=== PATIENT | female | born 2000 | race Caucasian/White ===

== ENCOUNTER → 2021-03-11 | Outpatient (CLI) | payer OTHER ==
[~2021-03-11] MED LIST: BENTYL 20MG TAB20 MG PO; IBUPROFEN400 MG PO; LEVAQUIN500 MG PO; LORTAB 7.5-3251 EACH PO; OMNICEF 300 MG300 MG PO; ONDANSETRON ODT4 MG SL; PERCOCET 5-3251 EACH PO; PHENERGAN 25 MG25 M1 PO; PROTONIX40 MG PO; ZOFRAN ODT 4 MG4 MG PO; ZOFRAN ODT 4 MG4 MG SL
== END ==
LOC: EMI 15:14
DX: E22.1 Hyperprolactinemia (principal)
CPT/HCPCS: 70553; A9577

== ENCOUNTER 2021-07-14 09:21 | Emergency (ER) | payer OTHER ==
[2021-07-14 10:36] LABS: HEMOGLOBIN 12.5 gm/dl (12.3-15.3); RED BLOOD COUNT 4.49 M/UL (4.00-5.10); WHITE BLOOD COUNT 8.4 K/UL (4.5-11.0)
[2021-07-14 11:17] LABS: BUN/CREATININE RATIO 13 (0-10)
[2021-07-14] MEDS ORDERED: NAPROXEN500 MG PO (12:02)
[2021-07-14] MEDS ORDERED: ZOFRAN ODT 4 MG4 MG SL (12:02)
== END 2021-07-14 12:28 | disposition home or self-care (01) ==
LOC: ER1 09:21
PROVIDERS: Physician Assistant Medical
DX: N20.0 Calculus of kidney (principal); Z87.442 Personal history of urinary calculi
CPT/HCPCS: 80053; 81001; 84703; 85025; 96374; 96375; 99284; J1885; J2405

== ENCOUNTER 2021-08-10 19:13 | Emergency (ER) | payer OTHER ==
[~2021-08-10 19:13] MED LIST changes: +NAPROXEN500 MG PO
== END 2021-08-10 20:24 | disposition left against medical advice (07) ==
LOC: ER1 19:13
DX: Z53.21 Procedure and treatment not carried out due to patient leaving prior to being seen by health care provider (principal)